=== PATIENT | female | born 1985 | race Hispanic/Latino ===

== ENCOUNTER → 2018-01-10 | Outpatient (CLI) | payer BC | LOC: RAH 13:26 | DX: N63.20 Unspecified lump in the left breast, unspecified quadrant (principal); Z98.82 Breast implant status | CPT/HCPCS: 76641 ==

== ENCOUNTER → 2018-02-07 | Outpatient (CLI) | payer BC ==
[~2018-02-07] MED LIST: LIDOCAINE 1%-EPI 1:100,000 20 ML VIAL IJ ONE; SODIUM BICARB 8.4% 50ML SYRINGE ONE
[2018-02-07 09:11] LABS: INR 1.03 (0.85-1.15); PROTHROMBIN TIME 10.8 SEC (9.6-11.6)
== END | disposition home or self-care (01) ==
LOC: RAH 07:44
PROVIDERS: ATTEND Student in an Organized Health Care Education/Training Program
DX: N63.0 Unspecified lump in unspecified breast (principal)
CPT/HCPCS: 36415; 85610; 85730; J3490 ×2

== ENCOUNTER → 2020-05-19 | Outpatient (CLI) | payer BC | END | disposition home or self-care (01) | LOC: RAH 12:38 | PROVIDERS: ATTEND Physician Assistant Medical | DX: N63.23 Unspecified lump in the left breast, lower outer quadrant (principal); N63.21 Unspecified lump in the left breast, upper outer quadrant; N63.11 Unspecified lump in the right breast, upper outer quadrant; N63.14 Unspecified lump in the right breast, lower inner quadrant; R92.2 Inconclusive mammogram | CPT/HCPCS: 76641 ==

== ENCOUNTER → 2022-07-13 | Outpatient (CLI) | payer BC | END | disposition home or self-care (01) | LOC: RAH 08:32 | PROVIDERS: ATTEND Obstetrics & Gynecology | DX: N63.10 Unspecified lump in the right breast, unspecified quadrant (principal); N63.20 Unspecified lump in the left breast, unspecified quadrant; Z98.82 Breast implant status | CPT/HCPCS: 77066 ==

== ENCOUNTER → 2023-07-14 | Outpatient (CLI) | payer BC | END | disposition home or self-care (01) | LOC: RAH 10:58 | PROVIDERS: ATTEND Obstetrics & Gynecology | DX: N63.15 Unspecified lump in the right breast, overlapping quadrants (principal); N63.14 Unspecified lump in the right breast, lower inner quadrant; N60.21 Fibroadenosis of right breast; N60.22 Fibroadenosis of left breast; N63.25 Unspecified lump in the left breast, overlapping quadrants; N63.11 Unspecified lump in the right breast, upper outer quadrant; Z98.82 Breast implant status | CPT/HCPCS: 77066 ==

== ENCOUNTER → 2025-03-11 | Outpatient (CLI) | payer BC ==
--- NOTE | 2025-03-11 11:13 | HMCIMG ---
PROCEDURE: [facility] DIAGNOSTIC BILATERAL, US BREAST BILATERAL, MAMMO DX IMPLANT BILATERAL HISTORY: Benign neoplasm of breast COMPARISON: 07/14/2023 TECHNIQUE: Bilateral digital diagnostic mammogram with CAD was performed. No additional views were obtained. Additional pushback views were obtained. Bilateral breast ultrasound study was performed. FINDINGS: The breasts are heterogeneously dense, which may obscure small masses. There are bilateral breast implants. Asymmetric breast densities are seen in both breasts. There is no evidence of a dominant mass, or suspicious microcalcification. There is no evidence of nipple retraction or skin thickening. Bilateral breast ultrasound study is shows right hypoechoic nodules at 3:00 measuring 17 x 12 x 19 mm, 5:00 measuring 17 x 9 x 16 mm and 11:00 in the axillary tail measuring 2.6 x 1.3 x 2 cm; and left hypoechoic nodules at 12:00 measuring 13 x 7 x 17 mm, 6:00 measuring 4 x 4 by 15 mm and 11:00 measuring 5 x 2 x 7 mm. There are left breast cysts at 3:00 measuring 8 x 5 x 8 mm and 4:00 measuring 4 x 2 x 5 mm. Overall, no interval change is seen. IMPRESSION: 1. Stable mammogram. Bilateral breast nodules and cysts unchanged. BI-RADS: CATEGORY 2: BENIGN FINDINGS Recommend monthly self breast exam as well as annual clinical examination. A negative x-ray should not delay biopsy if a dominant or clinically suspicious mass is present, since 8-10% of cancers are not identified by mammography. Dense breasts particularly, may obscure an underlying neoplasm. Some of these may be detected clinically and therefore, clinical examination is an essential part of breast evaluation.
== END | disposition home or self-care (01) ==
LOC: RAH 08:18
PROVIDERS: ATTEND Obstetrics & Gynecology
DX: D24.1 Benign neoplasm of right breast (principal); D24.2 Benign neoplasm of left breast; N60.02 Solitary cyst of left breast; N60.01 Solitary cyst of right breast; N63.15 Unspecified lump in the right breast, overlapping quadrants; N63.14 Unspecified lump in the right breast, lower inner quadrant; N63.11 Unspecified lump in the right breast, upper outer quadrant; N63.25 Unspecified lump in the left breast, overlapping quadrants; N63.22 Unspecified lump in the left breast, upper inner quadrant; R92.333 Mammographic heterogeneous density, bilateral breasts; N64.89 Other specified disorders of breast; Z98.82 Breast implant status
CPT/HCPCS: 77062; 77066